=== PATIENT | male | born 1945 | race Caucasian/White ===

== ENCOUNTER 2017-03-05 10:05 | Emergency (ER) | payer MEDICARE, MEDICAID ==
[2017-03-05] MEDS ORDERED: Morphine INJ* 4 MG/ML 1 ML SYRINGE IV ONE (10:37)
[2017-03-05] MEDS ORDERED: Ondansetron INJ* 2 MG/ML VIAL IV ONE (10:37)
[2017-03-05] MEDS: NS 0.9% 1000 ML* 1,000 ML IV ONE ×2 (10:48→11:44)
[2017-03-05] MEDS ORDERED: HYDROmorphone* 2 MG/ML 1 ML SYR IV SLOW PU ONE (11:11)
[2017-03-05] MEDS ORDERED: Diazepam SYRINGE* 5 MG/ML SYRINGE IV ONE (11:13)
[2017-03-05] MEDS ORDERED: fentaNYL* 50 MCG/ML 2 ML VIAL (100 MCG VIAL) IV ONE (11:18)
--- NOTE | 2017-03-05 11:29 | RAD ---
INDICATION: Metastatic disease left hemipelvis. Hip pain COMPARISON: CT February 25, 2017 TECHNIQUE: An AP view of the pelvis and AP views of the hip in neutral and abducted position were obtained FINDINGS: The left femur has eroded through the lytic lesion in the left hemipelvis/acetabulum and is now superiorly and medially displaced. There are no additional gross bony abnormalities. The SI joints and symphysis are intact. IMPRESSION: SUPERIOR AND MEDIAL DISPLACEMENT OF THE LEFT FEMUR WHICH IS ERODED THROUGH THE LYTIC LESION OF LEFT HEMIPELVIS.
[2017-03-05] MEDS ORDERED: Midazolam* 1 MG/ML 5 ML VIAL (5 MG) ONE (11:39)
[2017-03-05] MEDS ORDERED: fentaNYL* 50 MCG/ML 2 ML VIAL (100 MCG VIAL) ONE ×4 (11:39→17:03)
[2017-03-05] MEDS ORDERED: Naloxone* 0.4 MG/ML 1 ML VIAL ONE (11:39)
[2017-03-05] MEDS ORDERED: Flumazenil* 0.1 MG/ML 5 ML MDV ONE (11:39)
--- NOTE | 2017-03-05 12:32 | ED ---
Lower Extremity - HPI Summary HPI Summary: Patient presents with left hip pain after slipping on his icy step as he walked backwards with his cane down the steps. His leg twisted and he fell on the hip, resulting in immediate intense pain. He could not get up or move. 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 He denies N/T in the extremity and no prior injury to the left hip. - History of Current Complaint Chief Complaint: EDExtremityLower Stated Complaint: HIP PAIN Hx Obtained From: Patient Mechanism Of Injury: Twisted Onset of Pain: Immediate Onset/Duration: Hours Severity Initially: Severe Severity Currently: Severe Pain Intensity: 10 Timing: Constant Location: Is Discrete @ - left hip Character Of Pain: Sharp, Aching Associated Signs And Symptoms: Positive: Negative Aggravating Factor(s): Movement Alleviating Factor(s): Nothing Able to Bear Weight: No - Allergies/Home Medications Allergies/Adverse Reactions: Allergies Allergy/AdvReac Type Severity Reaction Status Date / Time No Known Allergies Allergy Verified 02/25/17 12:26 Home Medications: Home Medications Hydrocodone-Acetaminophen [Lorcet Plus 7.5-325 mg] 1 tab PO Q6HR PRN 03/05/17 [ History Confirmed 03/05/17] Ibuprofen TAB* [Advil TAB*] 400 mg PO TID WITH MEALS PRN 03/05/17 [History Confirmed 03/05/17] Levothyroxine TAB* [Synthroid TAB*] 100 mcg PO QAM 03/05/17 [History Confirmed 03/05/17] oxyCODONE/Acetamin 10/325(NF) [Percocet 10/325 (NF)] 1 tab PO Q6HR PRN 03/05/17 [History Confirmed 03/05/17] PMH/Surg Hx/FS Hx/Imm Hx Endocrine/Hematology History: Reports: Hx Thyroid Disease Denies: Hx Diabetes Cardiovascular History: Denies: Hx Hypertension, Hx Pacemaker/ICD Respiratory History: Denies: Hx Asthma, Hx Chronic Obstructive Pulmonary Disease (COPD) GI History: Denies: Hx Ulcer History: Denies: Hx Renal Disease Sensory History: Denies: Hx Hearing Aid Psychiatric History: Denies: Hx Panic Disorder - Surgical History Surgery Procedure, Year, and Place: MID FELL OFF ROOF COMPOUND FX RIGHT ARM EXTERNAL FIXATOR-THEN REMOVED Infectious Disease History: No Infectious Disease History: Denies: Hx Clostridium Difficile, Hx Hepatitis, Hx Human Immunodeficiency Virus (HIV), Hx of Known/Suspected MRSA, Hx Shingles, Hx Tuberculosis, Traveled Outside the [place] in Last 30 Days - Family History Known Family History: Positive: None - Social History Occupation: Retired Lives: With Family Alcohol Use: Occasionally Substance Use Type: Reports: None Smoking Status (MU): Former Smoker Type: Cigarettes Amount Used/How Often: quit 12/2012 Review of Systems Positive: Myalgia, Decreased ROM Negative: Weakness, Paresthesia, Numbness All Other Systems Reviewed And Are Negative: Yes Physical Exam Triage Information Reviewed: Yes Vital Signs On Initial Exam: Initial Vitals Temp Pulse Resp BP Pulse Ox 96.3 F 91 20 148/68 100 03/05/17 10:06 03/05/17 10:06 03/05/17 10:06 03/05/17 10:06 03/05/17 10:06 Vital Signs Reviewed: Yes Appearance: Positive: Well-Appearing, Well-Nourished, Pain Distress Skin: Positive: Warm, Skin Color Reflects Adequate Perfusion, Dry, Soft Head/Face: Positive: Normal Head/Face Inspection Eyes: Positive: EOMI, GLORY, Conjunctiva Clear ENT: Positive: Hearing grossly normal, Pharynx normal Neck: Positive: Supple, Nontender Respiratory/Lung Sounds: Positive: Clear to Auscultation, Breath Sounds Present Cardiovascular: Positive: RRR Abdomen Description: Positive: Nontender, Soft Bowel Sounds: Positive: Present Musculoskeletal: Positive: Limited @ - any movement of left hip is extremely painful, Pain @ Neurological: Positive: Sensory/Motor Intact, Alert, Oriented to Person Place, Time, NV Bundle Intact Distally, Unable to Assess Gait Psychiatric: Positive: Affect/Mood Appropriate AVPU Assessment: Alert - [place] Coma Scale Coma Scale Total: 15 Procedures - Joint Reduction Joint Reduction Site: hip (L) Conscious Sedation: Yes Reduction Attempts: 2 Pre-Procedure NV Exam: Yes Post Joint Reduction Film: joint not reduced Diagnostics - Vital Signs Vital Signs Temp Pulse Resp BP Pulse Ox 03/05/17 11:23 20 03/05/17 10:50 20 03/05/17 10:30 96.3 F 91 18 148/98 97 03/05/17 10:06 96.3 F 91 20 148/68 100 - Laboratory Lab Statement: Any lab studies that have been ordered have been reviewed, and results considered in the medical decision making process. - Radiology No standard instances Xray Interpretation: Positive (See Comments) Radiology Interpretation Completed By: Radiologist - left hip dislocation Lower Extremity Course/Dx - Course Course Of Treatment: An attempt was made to reduce the left hip with conscious sedation by Dr. Gamez and myself without success. Dr. Powell with orthopedic surgey was contacted and will take the patient to the O.R. for anesthesia and reduction. - Diagnoses Differential Diagnosis/HQI/PQRI: Positive: Arthritis, Bursitis, Cellulitis, Contusion, Fracture (Closed), Sprain, Strain Provider Diagnoses: Hip dislocation, left - Physician Notifications Discussed Care of Patient With: Dr. Gamez, ED attending; Dr. Powell, orthopedic surgery. Instructed by Provider To: Admit As Inpatient Discharge - Discharge Plan Condition: Stable Disposition: ADMITTED TO [facility]
[2017-03-05 12:54] VITALS: BP 152/71
[2017-03-05] MEDS ORDERED: Ondansetron INJ* 2 MG/ML VIAL IV PRN (12:54)
--- NOTE | 2017-03-05 13:20 | RAD ---
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 CT of the pelvis was performed. There is a large lytic lesion involving the left ilium with destruction of the acetabulum. Soft tissue mass is noted. The mass extends into the iliac this muscle. 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 The right pelvic ring is intact. The pubic symphysis and sacroiliac joints are unremarkable. No dilated loops of bowel are noted. Atherosclerotic aorta is noted. Urinary bladder is otherwise unremarkable. The right iliac crest and ilium is otherwise unremarkable. IMPRESSION: Large lytic lesion involving the left iliac crest extending into the acetabulum with protrusio acetabuli, associated soft tissue mass extending into the iliacus muscle.
[2017-03-05] MEDS: fentaNYL* 50 MCG/ML 2 ML VIAL (100 MCG VIAL) IV PRN ×5 (13:57→17:06)
--- NOTE | 2017-03-05 15:44 | TRS ---
DATE OF ADMISSION: 03/05/2017. DATE OF TRANSFER: 03/05/2017. ADMITTING DIAGNOSIS: Left hip dislocation. DISCHARGE DIAGNOSES: 1. Left pathologic acetabulum fracture. 2. Left medial hip dislocation with protrusio. 3. Left lung lesion. PROCEDURES DURING ADMISSION: None. HISTORY: The patient is a 72-year-old man, with hypothyroidism, who has recently suffered from left hip pain, who recently had a work-up demonstrating lesions of the lung and left acetabulum, who presented to the emergency department at [facility] after a fall with a left hip dislocation. The patient fell from standing height adjacent to stairs outside his house at approximately 8am on 03/05/17. He was taken to the [facility] ED by EMS. Of note, last week the patient had advanced imaging of his lungs which detected a lung lesion. He was scheduled for a biopsy of his left acetabular lesion at [facility] on . The patient had x-rays of the left hip in the emergency department that demonstrated a left hip dislocation. ED staff, under conscious sedation, tried to relocate the hip. They were unsuccessful. The patient was discussed with Dr. Madison Powell, sent for CT scan and transferred to preoperative holding and admitted to Dr. Lance Mcmillan. DESCRIPTION OF HOSPITAL COURSE: Dr. Mcmillan met the patient in preoperative holding. The patient was comfortable while being treated with IV Fentanyl as needed. Nasal cannula with two liters of oxygen. The left lower extremity was shortened and externally rotated. Neurovascularly intact distally. Pain with any passive range of motion of the left hip. Imaging was reviewed. Left hip x-rays demonstrated a medial dislocation as well as a little bit of anteriorization of the left hip with a large lytic lesion and a fracture of the acetabulum. Review of CT scan demonstrated a large lytic lesion of the acetabulum, extending into the pubic rami with soft tissue component as well, with medialization as well as some anteriorization of the femoral head. Effectively, there was some protrusio of the femoral head. Significant fracture of the medial and superior quinn of the acetabulum through the lytic lesion. In preoperative holding, the assessment was that the patient would not benefit from a closed relocation maneuver. The patient primarily is suffering from an acetabular fracture, that will require management, likely with a cage-based acetabular augmented total hip arthroplasty, tumor prosthesis. Therefore, the decision to transfer the patient to an outside facility with tumor orthopedic surgery available was made. Consideration was made of a femoral traction pin procedure at [facility]. However, the patient was comfortable on the stretcher. Preservation of hip joint articular cartilage seemed a less pressing of a concern, and traction bow was unavailable in the [facility] ED. It was determined that EMS would not have equipment to maintain longitudinal traction after traction pin were placed. Therefore, decision was made to transfer the patient directly to [facility] without any temporizing surgical measures. The patient's vital signs were stable throughout the brief admission and stay in the pre-op holding unit. He appeared comfortable treated with IV Fentanyl. The patient was discussed with Dr. Thompson, the orthopedist assembler clip on sunglasses, and by Dr. Faust, the medical doctor assembler clip on sunglasses. The tentative plan is for the patient to be admitted to Dr. Faust's service for a medical work-up of the patient's oncologic diagnosis, including likely biopsy, as well as orthopedic surgery consultation regarding possible required procedures for the left acetabulum and hip, including possible femoral traction pins early and a total hip arthroplasty with a large acetabular tumor prosthesis definitively. MEDICATIONS AT DISCHARGE: See medication sheet. DISPOSITION: The patient is being transferred by ambulance to [facility] in [place] for higher acuity care, specifically interventions by a subspecialist tumor/oncologic orthopedic surgeon an oncology service. [id number]/[facility] #: [id number] ANTOINETTE
== END 2017-03-05 20:05 | disposition short-term general hospital (02) ==
LOC: ED 10:05 → OR 12:52 → ED 20:05
DX: S73.005A Unspecified dislocation of left hip, initial encounter (principal); W00.9XXA Unspecified fall due to ice and snow, initial encounter; Y93.9 Activity, unspecified; Y92.9 Unspecified place or not applicable; M25.552 Pain in left hip
CPT/HCPCS: 72192; 96374; 96375; 99283; J2250; J2270; J2310; J2405; J3010